=== PATIENT | female | born 1930 | race Caucasian/White ===

== ENCOUNTER 2016-06-29 10:21 | Emergency (ER) | payer MEDICARE, BC ==
[~2016-06-29] VITALS: Ht 147.3 cm; Wt 58.2 kg
[~2016-06-29 10:21] MED LIST: ALPHAGAN OP; AMLODIPINE10 MG PO; ANTACID500 MG PO; APRESOLINE 25MG25 MG PO; ASPIRIN 32325 MG/TAB PO; ASPIRIN E.C. 8181 MG PO; CALCIUM + D 6001 TA1 PO; CENTRUM SILVER1 TA2 PO; COLACE 100100 MG/CAP PO; COREG 25MG25 MG/TAB PO; DIOVAN320 MG PO; DIOVAN80 M1 PO; HYDROXYURE500 MG/CAP PO; KLOR-CON 1010 MEQ PO; LABETALOL100 MG PO; LASIX; LASIX 40MG TABL40 MG PO; METAMUCIL1 PDR PO; METAMUCIL3.4 GM/DOS PO; MULTAQ400 MG PO; NORMODYNE100 MG PO; NORVASC 5MG5 MG/TAB PO; PLAVIX 75MG TAB75 MG PO; TRANDATE 100MG100 MG PO; TYLENOL 325MG325 MG PO; XALATAN EYE DROPS OU; ZOCOR 20MG20 MG PO; ZOCOR40 MG PO; [UNRECOGNIZED DRUG - OTHER]; [UNRECOGNIZED DRUG - OTHER]
[2016-06-29 10:22] VITALS: TEMP 97.8
[2016-06-29 11:15] LABS: BASO # 0.1 (0.0-0.2); BASO % 1.5 % (0.0-2.0); EOS # 0.1 (0.0-0.7); EOS % 0.8 % (0-4.0); GRAN # 5.7 (1.4-6.5); GRAN % 73.7 % (42.2-75.2); HEMOGLOBIN 12.3 g/dl (12.5-16.0); LYMPH # 1.4 (1.2-3.4); LYMPH % 17.7 % (20.0-51.0); MEAN CELL VOLUME 104 fl (80.0-100.0); MEAN CORPUSCULAR HEMOGLOBIN 36 pg (27.0-31.0); MEAN CORPUSCULAR HGB CONC 35 g/dl (33.0-37.0); MONO # 0.4 (0.1-0.6); MONO % 5.7 % (1.7-9.3); PLATELET COUNT 420 K/mm3 (130-400); RED BLOOD COUNT 3.38 M/mm3 (4.10-5.30); REDCELL DISTRIBUTION WIDTH-CV 13.4 % (11.5-14.5); WHITE BLOOD COUNT 7.8 K/mm3 (4.8-10.8)
[2016-06-29 11:28] LABS: ADJUSTED CALCIUM 8.8 mg/dL (8.4-10.2); ALBUMIN 3.7 gm/dL (3.5-5.0); BILIRUBIN,TOTAL 0.8 mg/dL (0.0-1.0); CALCIUM 8.6 mg/dL (8.4-10.2); CREATININE, serum 0.9 mg/dL (0.52-1.25); POTASSIUM 3.4 mmol/L (3.4-5.0); TOTAL PROTEIN 6.7 gm/dL (6.4-8.2)
[2016-06-29] MEDS ORDERED: NORCO 325 MG-51 TAB PO (11:34)
[2016-06-29 12:56] VITALS: BP 138/63; PULSE 67
== END 2016-06-29 12:57 | disposition home or self-care (01) ==
LOC: COL.ER 10:21
PROVIDERS: Family Medicine
DX: S42.292A Other displaced fracture of upper end of left humerus, initial encounter for closed fracture (principal); W01.198A Fall on same level from slipping, tripping and stumbling with subsequent striking against other object, initial encounter; Y92.009 Unspecified place in unspecified non-institutional (private) residence as the place of occurrence of the external cause; I48.91 Unspecified atrial fibrillation; I10 Essential (primary) hypertension; Z79.02 Long term (current) use of antithrombotics/antiplatelets; Z79.82 Long term (current) use of aspirin
CPT/HCPCS: J2270; J2405

== ENCOUNTER → 2017-03-09 | Outpatient (CLI) | payer MEDICARE, BC ==
[~2017-03-09] MED LIST changes: +NORCO 325 MG-51 TAB PO
== END ==
LOC: MC.RAD 11:39
DX: Z12.31 Encounter for screening mammogram for malignant neoplasm of breast (principal)

== ENCOUNTER 2017-09-30 06:53 | Day surgery (SDC) | payer MEDICARE, BC ==
[~2017-09-30] VITALS: Ht 147.3 cm; Wt 64.0 kg
[2017-09-30] VITALS (10 sets, daily range): BP systolic 111–155; BP diastolic 56–96; PULSE 59–64; TEMP 97.5
[2017-09-30] MEDS ORDERED: DEMADEX 20MG20 M1 PO (07:16)
[2017-09-30] MEDS ORDERED: DIOVAN320 MG PO (07:17)
[2017-09-30 07:39] LABS: HEMATOCRIT 37.8 % (37.0-47.0); HEMOGLOBIN 12.7 g/dl (12.5-16.0); MEAN CELL VOLUME 106 fl (80.0-100.0); MEAN CORPUSCULAR HEMOGLOBIN 36 pg (27.0-31.0); MEAN CORPUSCULAR HGB CONC 34 g/dl (33.0-37.0); MEAN PLATELET VOLUME 9.3 fl (7.4-10.4); PLATELET COUNT 538 K/mm3 (130-400); RED BLOOD COUNT 3.57 M/mm3 (4.10-5.30); REDCELL DISTRIBUTION WIDTH-CV 13.5 % (11.5-14.5)
[2017-09-30 07:41] LABS: PROTHROMBIN TIME 11.3 SECONDS (9.7-12.8)
[2017-09-30 07:49] LABS: CALCIUM 8.7 mg/dL (8.4-10.2); CREATININE, serum 1.88 mg/dL (0.52-1.25); POTASSIUM 4.4 mmol/L (3.4-5.0)
[2017-09-30] MEDS ORDERED: CEPHALEXIN500 M1 PO (11:05)
== END 2017-09-30 13:55 | disposition home or self-care (01) ==
LOC: COL.CAR 06:53
PROVIDERS: Internal Medicine Cardiovascular Disease
DX: Z45.010 Encounter for checking and testing of cardiac pacemaker pulse generator [battery] (principal); I48.0 Paroxysmal atrial fibrillation; I49.5 Sick sinus syndrome; I10 Essential (primary) hypertension; E78.5 Hyperlipidemia, unspecified; I25.10 Atherosclerotic heart disease of native coronary artery without angina pectoris; I35.0 Nonrheumatic aortic (valve) stenosis; E78.2 Mixed hyperlipidemia; Z95.2 Presence of prosthetic heart valve; Z95.5 Presence of coronary angioplasty implant and graft; Z79.82 Long term (current) use of aspirin; Z79.899 Other long term (current) drug therapy; Z87.891 Personal history of nicotine dependence
CPT/HCPCS: J0690; J2250; J3010; J7030